=== PATIENT | female | born 1960 | race Two or more races ===

== ENCOUNTER 2017-08-24 22:57 | Emergency (ER) | payer MEDICARE, OTHER ==
[~2017-08-24] VITALS: Ht 162.6 cm; Wt 88.5 kg
[2017-08-24] MEDS ORDERED: IV NS 0.9% 500 ML BAG IV ONE (23:00)
--- NOTE | 2017-08-24 23:03 | NUR ---
PT BIB [facility] TO ER BED 7 FOR SEIZURE WITNESSED BY FAMILY HAIR DRESSER [employer]. X1 MINUTE TONIC CLONIC SEIZURE. PT PRESENTS POSTICTAL. PER SON PT SAT ON THE GROUND THEN HAD SEIZURE. PT VSS/RESP EVEN UNLABORED/NAD NOTED/SKIN WARM AND DRY. MD AT BEDSIDE FOR EVAL. SEIZURE PRECAUTIONS IN PLACE. 20G IV TO R UPPER ARM HAIR DRESSER BY PARAMEDICS.
[2017-08-24] MEDS ORDERED: phenytoin SODIUM IV 250 MG/5 ML VIAL IV ONE (23:25)
[2017-08-24] MEDS ORDERED: PHENYTOIN SODIUM IV 1,000 MG in IV NS 0.9% 100 ML IV ONE (23:30)
[2017-08-24 23:37] LABS: BASOPHILS % (AUTO) 0.3 % (0.0-2.0); EOSINOPHILS # (AUTO) 0.4 /CMM (0.0-0.7); HEMATOCRIT 41 % (33-45); HEMOGLOBIN 13.5 g/dL (11.5-14.8); LYMPHOCYTES # (AUTO) 4.4 /CMM (0.8-4.8); LYMPHOCYTES % (AUTO) 43.5 % (20.0-44.0); MEAN CORPUSCULAR HEMOGLOBIN 31 PG (26.0-33.0); MEAN CORPUSCULAR HGB CONC 33 g/dl (31.0-36.0); MEAN CORPUSCULAR VOLUME 93 fL (82-100); MONOCYTES # (AUTO) 0.6 /CMM (0.1-1.30); MONOCYTES % (AUTO) 6.2 % (2.0-12.0); NEUTROPHILS # (AUTO) 4.7 /CMM (1.8-8.9); PLATELET COUNT (AUTO) 242 /CMM (150-450); RDW COEFFICIENT OF VARIATION 15.6 (11.5-15.0); RED BLOOD CELL COUNT(AUTO) 4.39 MIL/uL (4.0-5.2); WHITE BLOOD COUNT (AUTO) 10.2 K/uL (4.3-11.0)
--- NOTE | 2017-08-24 23:40 | NUR ---
PT TO CT VIA STRETCHER. VSS.
[2017-08-24 23:47] LABS: CALCIUM, SERUM 9.2 mg/dL (8.5-10.1); CARBON DIOXIDE 28 mmol/L (21-32); CHLORIDE 107 mmol/L (98-107); CREATININE 0.7 mg/dL (0.6-1.3); GLUCOSE 90 mg/dL (74-106); POTASSIUM 3.7 mmol/L (3.5-5.1); SODIUM SERUM 142 mmol/L (136-145); UREA NITROGEN, BLOOD 21 mg/dL (7-18)
[2017-08-24 23:50] LABS: INR 0.94 (0.87-1.13); PROTHROMBIN TIME 9.8 SECS (9.5-12.7)
--- NOTE | 2017-08-24 23:50 | NUR ---
PT BACK FROM CT
[2017-08-24 23:52] LABS: ALANINE AMINOTRANSFERASE 42 U/L (12-78); ALBUMIN 3.3 g/dL (3.4-5.0); ALCOHOL, BLOOD < 3 mg/dL (0-0); ALKALINE PHOSPHATASE 90 U/L (46-116); ASPARTATE AMINOTRANSFERASE 23 U/L (15-37); BILIRUBIN,TOTAL 0.3 mg/dL (0.2-1.0); TOTAL PROTEIN, SERUM 6.9 g/dL (6.4-8.2)
--- NOTE | 2017-08-25 00:37 | NUR ---
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
--- NOTE | 2017-08-25 01:09 | NUR ---
PT VSS/RESP EVEN UNLABORED. RN CONTINUES TO PROVIDE SAFETY AND COMFORT MEASURES.
[2017-08-25 01:17] LABS: APPEARANCE,URINE CLEAR (CLEAR); BILIRUBIN,URINE NEGATIVE (NEGATIVE); BLOOD, URINE NEGATIVE Ery/uL (NEGATIVE); COLOR,URINE YELLOW (YELLOW); KETONES,URINE NEGATIVE (NEGATIVE); LEUKOCYTE ESTERASE ,URINE NEGATIVE (NEGATIVE); NITRITE, URINE NEGATIVE (NEGATIVE); PROTEIN,URINE NEGATIVE (NEGATIVE); UGLUCOSE NEGATIVE (NEGATIVE); UROBILINOGEN,URINE 0.2 EU/dL (0.2)
--- NOTE | 2017-08-25 03:00 | NUR ---
PT AMBULATORY TO THE RESTROOM WITH A STEADY GAIT.
--- NOTE | 2017-08-25 03:05 | NUR ---
IV removed. Catheter intact and site benign. Pressure and 4x4 applied to site. No bleeding noted. Patient discharged with son to home in stable condition. Written and verbal after care instructions given, pt instructed not to drive. Patient verbalizes understanding of instruction. Pt ambulatory with a steady gait.
[2017-08-25 03:11] VITALS: BP 126/70
== END 2017-08-25 03:12 | disposition home or self-care (01) ==
LOC: EDBD 23:00 → ER 23:00
DX: G40.909 Epilepsy, unspecified, not intractable, without status epilepticus (principal); J45.909 Unspecified asthma, uncomplicated; E11.9 Type 2 diabetes mellitus without complications; R79.1 Abnormal coagulation profile; R51 Headache
CPT/HCPCS: 36415; 51701; 70450; 71010; 80048; 80076; 80305; 81001; 82962; 85025; 85730; 93005; 96365; 99285; A4606; G0480; J1165 ×2; J7030; J7040; 81000-TC; Z7610